=== PATIENT | male | born 1965 | race Caucasian/White ===

== ENCOUNTER 2016-12-25 06:20 | Emergency (ER) | payer BC, OTHER ==
[~2016-12-25] VITALS: Ht 177.8 cm; Wt 111.6 kg
[~2016-12-25 06:20] MED LIST: MULT-506 PO
[2016-12-25 06:23] VITALS: TEMP 36.6; Ht 177.8 cm; Wt 111.6 kg
[2016-12-25 07:07] VITALS: O2SAT 95
[2016-12-25 07:12] LABS: HEMATOCRIT 46.3 % (42-52); MEAN CELL VOLUME 86.2 fL (80-100); MEAN CORPUSCULAR HEMOGLOBIN 28.9 pg (25-34); MEAN CORPUSCULAR HGB CONC 33.5 g/dl (32-36); MEAN PLATELET VOLUME 10.5 fL (7.4-10.4); PLATELET COUNT 232 K/uL (130-400); RED BLOOD COUNT 5.37 M/uL (4.7-6.1); WHITE BLOOD COUNT 6.73 K/uL (4.8-10.8)
[2016-12-25 07:19] LABS: PROTHROMBIN TIME (PATIENT) 10.5 SECONDS (9.0-12.0)
[2016-12-25 07:21] LABS: BLOOD UREA NITROGEN 19 mg/dl (7-18); BUN/CREATININE RATIO 19.2 (10-20); CALCIUM 9.2 mg/dl (8.5-10.1); CARBON DIOXIDE 27 mmol/L (21-32); CHLORIDE 108 mmol/L (98-107); CREATININE 0.99 mg/dl (0.60-1.40); GLUCOSE 99 mg/dl (70-99); POTASSIUM 4.1 mmol/L (3.5-5.1); SODIUM 140 mmol/L (136-145)
[2016-12-25 07:27] LABS: ALB/GLOB RATIO 1.1 (0.9-2); ALKALINE PHOSPHATASE 96 U/L (45-117); ALT/SGPT 27 U/L (12-78); AST/SGOT 17 U/L (15-37); CKMB/CK RATIO 0.8 (0-3.0)
--- NOTE | 2016-12-25 07:35 | DIAGNOSTIC IMAGING REPORT ---
CHEST ONE VIEW PORTABLE CLINICAL HISTORY: Chest pressure. COMPARISON STUDY: No previous studies for comparison. FINDINGS: Lung volumes are normal. There is no consolidation to suggest pneumonia. No pneumothorax or pleural effusion is present. There is no evidence of pulmonary edema. Incidental note is made of a healed fracture of the midshaft of the left clavicle. Cardiac size is at the upper limits of normal. Mediastinal contours are unremarkable. IMPRESSION: No acute cardiopulmonary findings. Electronically signed by: Guy Prasad M.D. 12/25/2016 7:34 AM Dictated Date/Time: 12/25/2016 7:33 AM
--- NOTE | 2016-12-25 08:41 | EMERGENCY ROOM VISIT NOTE ---
History First contact with patient: 07:03 Chief Complaint: CHEST PAIN Stated Complaint: TIGHTNESS IN CHEST Nursing Triage Summary: Chest pressure for one week. Hx of indegestion, takes prilosec for, no improvement with extra doses. Chest pressure relieved with ASA at home, does not get worse with exertion, just feels like "a constant pressure". Today, dyspnea at rest. History of Present Illness Patient is a generally healthy 51 year old white male who presents to the emergency department for evaluation of chest pain times tightness in his chest 2 weeks. He states he noticed his symptoms [place] the [place] other about 2 weeks ago. He describes it as feeling like a tightness or a heaviness in his chest. He states it is primarily midsternal to left-sided. It does not radiate. It has been constant, but has waxed and waned for about 2 weeks. He states that it is not worsened with exertion was improved with rest. He denies any changes with coughing, sneezing or deep breathing or with eating or drinking. He states his symptoms were at their worst about 3 days ago. He started using aspirin 325 mg twice daily at that time which did help with his symptoms. He presently rates his discomfort a 5/ 10. He does note some increased fatigue. He denies any lightheadedness, dizziness, headache, nausea, vomiting, abdominal pain. No dysuria, frequency or urgency. No melena or hematochezia. No calf or leg pain or swelling. He was also using a caffeine based workout supplement which she stopped a few days ago as well. He tried increasing his Prilosec from 20 mg to 40 mg which did not change his symptoms. He has never had symptoms similar to this previously, has never had a cardiac workup. He states that it has been several years since he saw a primary care provider. At that time he was told he had borderline high cholesterol and high blood pressure, but states that he modified his diet and lost weight. Review of Systems Review of systems as per HPI. All other systems reviewed were negative. 10 systems reviewed. Past Medical/Surgical History Medical Problems: (1) Encounter for removal of sutures (2) Finger laceration (3) GERD (gastroesophageal reflux disease) (4) Subungual hematoma of finger Surgical Problems: (1) History of herniorrhaphy (2) History of wisdom tooth extraction (3) Hx of tonsillectomy Electronic medical records are reviewed and summarized as above/below. See Problem List. Family History Patient reports no known family medical history. Social History Smoking Status: Never Smoker Alcohol Use: occasionally Marital Status: in relationship Housing Status: lives with significant other Occupation Status: employed Current/Historical Medications No Active Prescriptions or Reported Meds Physical Exam Vital Signs Date Time Temp Pulse Resp B/P (MAP) Pulse Ox O2 Delivery O2 Flow Rate FiO2 12/25/16 08:52 68 18 130/89 95 Room Air 12/25/16 07:07 96 Room Air 12/25/16 07:07 95 Room Air 12/25/16 06:52 71 16 139/91 95 Room Air 12/25/16 06:52 96 Room Air 12/25/16 06:35 78 12/25/16 06:23 36.6 74 18 153/94 98 Room Air Physical Exam CONSTITUTIONAL: Patient is pleasant, well-appearing 51-year-old white male who is awake and alert and in no acute distress. EYES: Pupils equal, round, reactive to light and accommodation. EOMs intact without nystagmus. Sclera are anicteric. ENT: Tympanic membranes intact, with normal landmarks. External canals are clear. Oral and nasopharynx are clear. Mucous membranes are moist, no lesions , tongue and gums appear normal. NECK: No bruits auscultated. Supple without lymphadenopathy. No thyromegaly. No meningeal signs. Full active range of motion without discomfort. CARDIOVASCULAR: Regular rate and rhythm, with normal S1 and S2, no murmur or gallop or rub is heard. No carotid bruits auscultated. No JVD. Peripheral pulses easy to palpable. RESPIRATORY: Breath sounds equal and clear to auscultation without wheezes, rales, or rhonchi heard. Full and equal chest expansion without accessory muscle use or retractions. GI: Bowel sounds are present. Abdomen is soft, nontender, nondistended. No organomegaly. No pulsatile masses. No guarding or rebound. MUSCULOSKELETAL: Full range of motion of extremities x 4 with good strength. No cyanosis, edema, joint tenderness or swelling. No deformity. INTEGUMENTARY: No lesions or rash, normal skin turgor. NEUROLOGICAL: Alert, oriented, and cooperative. Cranial nerves, sensation and strength grossly intact. Pupils round, equal, and react to light, EOMs are full. LYMPH: No lymphadenopathy. Medical Decision & Procedures ER Provider Diagnostic Interpretation: CHEST ONE VIEW PORTABLE CLINICAL HISTORY: Chest pressure. COMPARISON STUDY: No previous studies for comparison. FINDINGS: Lung volumes are normal. There is no consolidation to suggest pneumonia. No pneumothorax or pleural effusion is present. There is no evidence of pulmonary edema. Incidental note is made of a healed fracture of the midshaft of the left clavicle. Cardiac size is at the upper limits of normal. Mediastinal contours are unremarkable. IMPRESSION: No acute cardiopulmonary findings. Laboratory Results 12/25/16 06:35 12/25/16 06:35 Test 12/25/16 06:35 12/25/16 06:40 Red Blood Count 5.37 M/uL (4.7-6.1) Mean Corpuscular Volume 86.2 fL (80-100) Mean Corpuscular Hemoglobin 28.9 pg (25-34) Mean Corpuscular Hemoglobin Concent 33.5 g/dl (32-36) RDW Standard Deviation 41.1 fL (36.4-46.3) RDW Coefficient of Variation 13.1 % (11.5-14.5) Mean Platelet Volume 10.5 fL (7.4-10.4) Prothrombin Time 10.5 SECONDS (9.0-12.0) Prothromb Time International Ratio 1.0 (0.9-1.1) Activated Partial Thromboplast Time 26.3 SECONDS (21.0-31.0) Partial Thromboplastin Ratio 1.0 Anion Gap 5.0 mmol/L (3-11) Est Creatinine Clear Calc Drug Dose 111.7 ml/min Estimated GFR () 102.5 Estimated GFR (Non- 88.4 BUN/Creatinine Ratio 19.2 (10-20) Calcium Level 9.2 mg/dl (8.5-10.1) Total Bilirubin 0.4 mg/dl (0.2-1) Aspartate Amino Transf (AST/SGOT) 17 U/L (15-37) Alanine Aminotransferase (ALT/SGPT) 27 U/L (12-78) Alkaline Phosphatase 96 U/L (45-117) Total Creatine Kinase 87 U/L (39-308) Creatine Kinase MB 0.7 ng/ml (0.5-3.6) Creatine Kinase MB Ratio 0.8 (0-3.0) Troponin I < 0.015 ng/ml (0-0.045) Total Protein 7.8 gm/dl (6.4-8.2) Albumin 4.1 gm/dl (3.4-5.0) Globulin 3.7 gm/dl (2.5-4.0) Albumin/Globulin Ratio 1.1 (0.9-2) D-Dimer 320 ug/L FEU (0-500) ECG Indication: chest pain Rate (beats per minute): 70just wan Rhythm: normal sinus Findings: no acute ischemic change, no ectopy Comparison ECG Date: no prior available ED Course The patient was seen and assessed as above. Old records are reviewed. Critical pathways had been implemented prior to my evaluation of the patient. EKG was as noted above with no acute ischemic changes or ectopy. Chest x-ray was unremarkable. Laboratory studies did not demonstrate any leukocytosis or anemia. Platelets and coags are normal. Electrolytes, renal function and liver functions are within normal limits. Cardiac enzymes are negative 1 symptoms greater than 48 hours. [id number] d-dimer was also performed and was negative, given this further workup for PE was not pursued. All laboratory and diagnostic imaging studies were reviewed with attending physician and discussed with the patient and his significant other at length. Differential diagnosis includes acute myocardial infarction, acute coronary syndrome, myocarditis, pericarditis, pericardial effusions /tamponade, esophageal perforation, pulmonary embolism, pneumonia, pneumothorax, cardiomyopathy, congestive heart failure, anemia , COPD/asthma exacerbation, musculoskeletal, anxiety, costochondritis, GERD, gastritis, esophagitis, among others. The patient was reassured, however was strongly encouraged to reestablish his care with his primary care provider for further care and evaluation of his chest pain as an outpatient, possibly to include an echocardiogram or stress test if indicated. He was educated on the worrisome signs or symptoms for which she should return to the emergency department immediately. He expressed understanding of this and was agreeable. He was discharged home with his significant other in good condition. Medical Decision See Emergency Department course Medication Reconcilliation Current Medication List: was personally reviewed by me Blood Pressure Screening Patient's blood pressure: Normal blood pressure Blood pressure disposition: Referred to PCP Impression Primary Impression: Substernal precordial chest pain Departure Information Prescriptions No Active Prescriptions or Reported Meds Referrals No Doctor, Assigned (PCP) Patient Instructions My [facility] Additional Instructions Acetaminophen(Tylenol) may be used for fever or pain. Use 1000mg every six hours as needed. Avoid using more than 3000mg in a 24 hour period. Rest and drink plenty of fluids as tolerated. Continue current medications. Avoid strenuous activities and anything that worsens your pain. Resume normal activities once your symptoms resolve. Return to the ER immediately for worsening or persistent chest pain, abdominal pain, vomiting, fevers, chest pains, difficulty breathing, worsening of your condition, or as needed. Follow up with your primary physician in 2-3 days for a recheck of your current condition.
[2016-12-25 08:52] VITALS: BP 130/89; PULSE 68; O2SAT 95
== END 2016-12-25 08:53 | disposition home or self-care (01) ==
LOC: C.EDB 06:21
DX: R07.2 Precordial pain (principal); K21.9 Gastro-esophageal reflux disease without esophagitis